=== PATIENT | female | born 1960 | race Caucasian/White ===

== ENCOUNTER 2019-04-10 11:47 | Inpatient (IN) | payer BC ==
[~2019-04-10] VITALS: Ht 170.2 cm; Wt 82.1 kg
[2019-04-10 11:53] VITALS: Ht 170.2 cm; Wt 82.1 kg
[2019-04-10 12:26] LABS: BASOPHIL % 0.4 % (0-2); PLATELET COUNT 285 x10^3mcL (130-400); RED CELL DISTRIBUTION WIDTH 13.6 % (11.5-14.5)
[2019-04-10 12:56] LABS: CARBON DIOXIDE 28.1 mmol/L (21-32); CHLORIDE SERUM 97 mmol/L (98-107); CREATININE SERUM 0.9 mg/dL (0.6-1.0); GFR1 > 60 mL/min; GLUCOSE SERUM 125 mg/dL (74-106); POTASSIUM SERUM 3.6 mmol/L (3.5-5.1); SODIUM SERUM 133 mmol/L (136-145)
[2019-04-10 13:00] LABS: ALBUMIN 4.1 g/dL (3.4-5.0); ALKALINE PHOSPHATASE 61 U/L (46-116); ALT/SGPT 23 U/L (14-59); AST/SGOT 14 U/L (15-37); BILIRUBIN TOTAL 0.7 mg/dL (0.20-1.00); LIPASE 97 IU/L (73-393); TOTAL PROTEIN, SERUM 7.9 g/dL (6.4-8.2); TRIGLYCERIDES 77 mg/dL (<150)
[2019-04-10 13:04] LABS: CHOLESTEROL 236 mg/dL (<200); CHOLESTEROL/HDL RATIO 3.6; HDL CHOLESTEROL 65 mg/dL (40-60)
[2019-04-10 13:05] LABS: UA SPECIFIC GRAVITY >=1.030 (1.005-1.035); microscopic required? YES; urine erythrocyte NEGATIVE (NEGATIVE)
[2019-04-10] MEDS ORDERED: SYNTHROID0.125 MG PO (13:59)
[2019-04-10] MEDS ORDERED: HYDROXYCHLOROQ200 MG PO (14:00)
[2019-04-10] MEDS ORDERED: ZYRTEC10 MG PO (14:00)
[2019-04-10] MEDS ORDERED: PROMETRIUM100 MG PO (14:01)
[2019-04-10] MEDS ORDERED: PANTOPRAZOLE SO40 M1 PO (14:02)
[2019-04-10] MEDS ORDERED: ESTRADIOL0.5 M1 PO (14:02)
[2019-04-10] MEDS ORDERED: MINOCYCLINE HYD50 MG PO (14:02)
[2019-04-10 15:09] VITALS: BP 149/71
[2019-04-10 16:18] VITALS: BP 159/74
[2019-04-10 19:41] VITALS: BP 162/83
[2019-04-10 22:30] VITALS: BP 154/71
[2019-04-11 04:17] VITALS: BP 135/63
[2019-04-11 07:03] LABS: CALCIUM 7.7 mg/dL (8.5-10.1); CARBON DIOXIDE 24.4 mmol/L (21-32); CHLORIDE SERUM 107 mmol/L (98-107); CREATININE SERUM 0.8 mg/dL (0.6-1.0); GFR1 > 60 mL/min; GLUCOSE SERUM 103 mg/dL (74-106); MAGNESIUM 2.1 mg/dL (1.8-2.4); PHOSPHOROUS 2.3 mg/dL (2.5-4.9); POTASSIUM SERUM 3.9 mmol/L (3.5-5.1); SODIUM SERUM 142 mmol/L (136-145)
[2019-04-11 07:04] LABS: BASOPHIL % 0.1 % (0-2); PLATELET COUNT 244 x10^3mcL (130-400); RED CELL DISTRIBUTION WIDTH 13.7 % (11.5-14.5)
[2019-04-11 08:06] VITALS: BP 135/67
[2019-04-11 12:03] VITALS: BP 136/70
[2019-04-11 16:24] VITALS: BP 151/66
[2019-04-11 19:22] VITALS: BP 143/69
[2019-04-12 05:06] VITALS: BP 119/55
[2019-04-12 06:47] LABS: BASOPHIL % 0.2 % (0-2); PLATELET COUNT 222 x10^3mcL (130-400); RED CELL DISTRIBUTION WIDTH 13.5 % (11.5-14.5)
[2019-04-12 07:16] LABS: CALCIUM 7.5 mg/dL (8.5-10.1); CARBON DIOXIDE 27.3 mmol/L (21-32); CHLORIDE SERUM 104 mmol/L (98-107); CREATININE SERUM 0.7 mg/dL (0.6-1.0); GFR1 > 60 mL/min; GLUCOSE SERUM 85 mg/dL (74-106); MAGNESIUM 2.2 mg/dL (1.8-2.4); PHOSPHOROUS 1.9 mg/dL (2.5-4.9); POTASSIUM SERUM 3.3 mmol/L (3.5-5.1); SODIUM SERUM 135 mmol/L (136-145)
[2019-04-12 08:54] VITALS: BP 120/58
[2019-04-12] MEDS ORDERED: METP PO (15:24)
[2019-04-12] MEDS ORDERED: MIRUD PO (15:24)
[2019-04-12 15:59] VITALS: BP 107/69
== END 2019-04-12 17:18 | disposition home or self-care (01) | DRG 391 ==
LOC: ED 11:47 → MU 13:54
PROVIDERS: Internal Medicine Gastroenterology; Specialist; ADMIT Family Medicine
PROC: 0DBL8ZX Excision of Transverse Colon, Via Natural or Artificial Opening Endoscopic, Diagnostic (ICD-10-PCS; 2019-04-12)
PROC: 0DBF8ZX Excision of Right Large Intestine, Via Natural or Artificial Opening Endoscopic, Diagnostic (ICD-10-PCS; 2019-04-12)
PROC: 0DBG8ZX Excision of Left Large Intestine, Via Natural or Artificial Opening Endoscopic, Diagnostic (ICD-10-PCS; 2019-04-12)
PROC: 0DBH8ZX Excision of Cecum, Via Natural or Artificial Opening Endoscopic, Diagnostic (ICD-10-PCS; principal; 2019-04-12 08:00)
DX: K52.3 Indeterminate colitis (principal); K55.039 Acute (reversible) ischemia of large intestine, extent unspecified; N39.0 Urinary tract infection, site not specified; E87.1 Hypo-osmolality and hyponatremia; E03.9 Hypothyroidism, unspecified; K59.00 Constipation, unspecified; M32.9 Systemic lupus erythematosus, unspecified; K21.9 Gastro-esophageal reflux disease without esophagitis; Z88.8 Allergy status to other drugs, medicaments and biological substances; E87.8 Other disorders of electrolyte and fluid balance, not elsewhere classified
CPT/HCPCS: 45378; 87046; 87046-59; C9113; G0378; J0696; J1200; J1610; J1885; J1956; J2250; J2270; J2310; J2405; J3010; J3490; J7030; J8597; Q0092; Q9967